=== PATIENT | female | born 1985 | race Two or more races ===

== ENCOUNTER 2019-04-14 01:13 | Inpatient (IN) | payer OTHER ==
[~2019-04-14] VITALS: Ht 170.2 cm; Wt 94.3 kg
[2019-04-14] MEDS ORDERED: PRENATAL 19 TA1 EACH PO (02:07)
[2019-04-14] MEDS ORDERED: ASA81 MG PO (02:07)
[2019-04-14] MEDS ORDERED: VALTREX1000 MG PO (02:08)
[2019-04-17] MEDS ORDERED: SENNA8.6 MG PO (12:27)
[2019-04-17] MEDS ORDERED: GAS RELIEF125 MG PO (12:27)
[2019-04-17] MEDS ORDERED: IBUPROFEN800 MG PO (12:27)
== END 2019-04-17 13:28 | disposition home or self-care (01) | DRG 788 ==
LOC: LDR 01:13 → OB/GYN 01:13 → O/R 22:51 → OB/GYN 04-15 02:26
PROVIDERS: ADMIT Obstetrics & Gynecology
PROC: 3E0P7VZ Introduction of Hormone into Female Reproductive, Via Natural or Artificial Opening (ICD-10-PCS; 2019-04-14)
PROC: 3E033VJ Introduction of Other Hormone into Peripheral Vein, Percutaneous Approach (ICD-10-PCS; 2019-04-14)
PROC: 4A1HXCZ Monitoring of Products of Conception, Cardiac Rate, External Approach (ICD-10-PCS; 2019-04-14)
PROC: 10D00Z1 Extraction of Products of Conception, Low, Open Approach (ICD-10-PCS; principal; 2019-04-14 17:00)
DX: O82 Encounter for cesarean delivery without indication (principal); O61.0 Failed medical induction of labor; Z3A.39 39 weeks gestation of pregnancy; Z37.0 Single live birth

== ENCOUNTER 2021-02-26 09:33 | Emergency (ER) | payer OTHER ==
[~2021-02-26] VITALS: Ht 170.2 cm; Wt 79.4 kg
[~2021-02-26 09:33] MED LIST: ASA81 MG PO; GAS RELIEF125 MG PO; IBUPROFEN800 MG PO; PRENATAL 19 TA1 EACH PO; SENNA8.6 MG PO; VALTREX1000 MG PO
[2021-02-26] MEDS ORDERED: ULTRAM50 MG PO (14:00)
[2021-02-26] MEDS ORDERED: DICLOFENAC POTA50 MG PO (14:00)
[2021-02-26] MEDS ORDERED: CYCLOBENZAPRINE10 MG PO (14:00)
== END 2021-02-26 13:57 | disposition home or self-care (01) ==
LOC: ER 09:33
DX: S33.5XXA Sprain of ligaments of lumbar spine, initial encounter (principal); X50.3XXA Overexertion from repetitive movements, initial encounter; Y93.89 Activity, other specified; Y92.89 Other specified places as the place of occurrence of the external cause; Y99.8 Other external cause status

== ENCOUNTER → 2021-08-21 | Emergency (ER) | payer OTHER ==
[~2021-08-21] VITALS: Ht 170.2 cm; Wt 86.2 kg
[~2021-08-21] MED LIST changes: +CYCLOBENZAPRINE10 MG PO; +DICLOFENAC POTA50 MG PO; +ULTRAM50 MG PO
== END | disposition home or self-care (01) ==
LOC: ER 17:29
DX: M54.50 Low back pain, unspecified (principal); M62.838 Other muscle spasm